=== PATIENT | male | born 1990 ===

== ENCOUNTER 2020-04-16 17:25 | Emergency (ER) | payer SELFPAY | END 2020-04-16 18:01 | disposition home or self-care (01) | LOC: ERS 17:25 | DX: S39.012A Strain of muscle, fascia and tendon of lower back, initial encounter (principal); F17.290 Nicotine dependence, other tobacco product, uncomplicated; X50.0XXA Overexertion from strenuous movement or load, initial encounter; Y99.0 Civilian activity done for income or pay | CPT/HCPCS: 99282 ==